=== PATIENT | female | born 1950 | race Caucasian/White ===

== ENCOUNTER → 2018-02-07 | Outpatient (CLI) | payer OTHER ==
[~2018-02-07] MED LIST: AMLODIPINE BESY10 MG PO; LIPITOR 20 MG T20 M1 PO; LOPRESSOR50 PO; METFORMIN HCL500 MG PO; NATEGLINIDE120 MG PO; OMEPRAZOLE40 MG PO; PIOGLITAZONE15 MG PO
== END ==
LOC: M.RAD 07:40
DX: Z12.31 Encounter for screening mammogram for malignant neoplasm of breast (principal)

== ENCOUNTER → 2019-03-25 | Outpatient (CLI) | payer OTHER | LOC: M.RAD 03-19 09:20 | DX: Z12.31 Encounter for screening mammogram for malignant neoplasm of breast (principal) ==

== ENCOUNTER → 2020-04-30 | Outpatient (CLI) | payer OTHER | LOC: M.RAD 09:56 | PROVIDERS: ATTEND Internal Medicine | DX: Z12.31 Encounter for screening mammogram for malignant neoplasm of breast (principal); N63.21 Unspecified lump in the left breast, upper outer quadrant ==